=== PATIENT | female | born 1960 | race Caucasian/White ===

== ENCOUNTER 2017-06-01 20:33 | Observation (INO) ==
[2017-06-01] MEDS ORDERED: MORPHINE 2 MG/1 ML SYRINGE IV STA ×2 (20:52→22:32)
[2017-06-01] MEDS ORDERED: ONDANSETRON 4 MG/2 ML VIAL IV STA ×2 (20:52→22:32)
[2017-06-01 21:04] LABS: Basophils # 0.1 10*3/uL (0.0-0.2); Basophils % 0.5 % (0.0-0.8); Eosinophils # 0.1 10*3/uL (0.0-0.87); Eosinophils % 1.3 % (0.00-10.9); Hematocrit 37.5 VOL% (35.7-47.0); Hemoglobin 12.7 GM/DL (12.0-16.0); Immature Granulocytes % 0.4 %; Immature Granulocytes Absolute 0.04 #; Lymphocytes # 2.5 10*3/uL (1.4-4.0); Lymphocytes % 27.1 % (21.3-54.2); Mean Corpuscular HGB Conc 33.9 GM/DL (32-36); Mean Corpuscular Hemoglobin 29 PG (27-34); Mean Corpuscular Volume 86.2 FL (87-102); Mean Platelet Volume 9.2 FL (9.6-12.0); Monocytes # 0.9 10*3/uL (0.11-0.8); Monocytes % 10.2 % (1.7-12.7); Neutrophils # 5.5 10*3/uL (1.4-7.4); Neutrophils % 60.5 % (38.7-73.9); Platelet Count 276 T/CUMM (130-400); Red Blood Count 4.35 MC/CUMM (3.8-5.5); Red Cell Distribution Width 12.6 % (9.3-17.3); White Blood Count 9.1 T/CUMM (4-12)
[2017-06-01] MEDS ORDERED: MORPHINE 2 MG/1 ML SYRINGE ONE ×2 (21:04→22:32)
[2017-06-01] MEDS ORDERED: ONDANSETRON 4 MG/2 ML VIAL ONE ×2 (21:04→22:32)
--- NOTE | 2017-06-01 21:06 | Emergency Department Note ---
ISofia Brittany, am scribing for, and in the presence of, Liberty Moon DO 21: 00. IRed Debra, DO, personally performed the services described in this documentation, ascribed by Nancy Black in my presence, and it is both accurate and complete . Arrival - Arrival Chief Complaint: Blood Pressure Stated Complaint: HTN Crisis ED Nursing Triage Note: C/C Hypertensive Crisis, feeling bad. Mode of Arrival: Stretcher Limitations: No Limitations Source: Patient, Family Time Seen by Provider: 06/01/17 20:47 - History of Present Illness HPI Narrative: This is a 56 y/o white female,who presents to the ED by EMS for further evaluation of a hypertension crisis. She states she has a known hx of HTN. She states around 1 month ago, she had her BP meds changed. She notes she sees a out of town. She notes a LIM and nausea. Pt states "I do not feel good." Pt has no other complaints/pain in the ED at this time. Pt has a PMHx of TIA, NIDDM , and HTN. PT has had a cholecystectomy and hysterectomy. Pt denies a family medical hx. Pt denies a social Hx. Onset (ago): hour(s) (Started earlier today) Consistency: constant Severity: moderate Allergies/Adverse Reactions: Allergies Allergy/AdvReac Type Severity Reaction Status Date / Time No Known Allergies Allergy Unverified 06/01/17 20:45 Home Medications: Home Medications Medication Instructions Recorded Confirmed Type Carvedilol [Coreg] 12.5 mg PO BID 06/01/17 06/01/17 History Chlorthalidone 25 mg PO DAILY 06/01/17 06/01/17 History Furosemide 20 mg PO DIRECTED 06/01/17 06/01/17 History Lovastatin 20 mg PO DAILY 06/01/17 06/01/17 History Potassium Citrate [Potassium 10 meq PO DAILY 06/01/17 06/01/17 History Citrate ER] Valsartan 320 mg PO DAILY 06/01/17 06/01/17 History metFORMIN [Glucophage] 500 mg PO TID W/MEALS 06/01/17 06/01/17 History Review of System - Review of System 12 point system: reviewed and no additional remarkable complaints except as stated - Review of System Review of Systems: Hypertension crisis Gastrointestinal: Present: nausea Neurological: Present: headache Medical,Surgical,& Family Hx - Medical History Cardio: History of: Hypertension Neurology: History of: TIA (x2) Endocrine: History of: Diabetes Mellitus (NIDDM) - Surgical History Abdominal Surgeries: Surgical HX of: Cholecystectomy Reproductive Surgeries: Surgical HX of;: Hysterectomy - Social History Smoking Status: Never smoker Frequency of Alcohol Use: None Type of Drug Use: None Exam Vital Signs: Vital Signs Temperature 97.3 F L 06/01/17 20:35 Pulse Rate 73 06/01/17 20:35 Respiratory Rate 18 06/01/17 20:35 Blood Pressure 198/103 06/01/17 20:35 O2 Sat by Pulse Oximetry 96 06/01/17 20:35 - General General appearance: alert, in no apparent distress - Head Head exam: Present: atraumatic, normocephalic, normal inspection - Eye Eye exam: Present: normal appearance, PERRL, EOMI. Absent: nystagmus - ENT ENT exam: Present: normal exam, mucous membranes moist - Neck Neck exam: Present: normal inspection, full ROM, trachea midline. Absent: tenderness - Chest Chest inspection: Present: normal inspection, symmetric chest wall rise. Absent : tenderness - Respiratory Respiratory exam: Present: normal lung sounds bilaterally. Absent: respiratory distress - Cardiovascular Cardiovascular exam: Present: regular rate, normal rhythm, normal heart sounds. Absent: murmur, rubs, gallop, clicks, JVD - Abdominal Exam Abdominal exam: Present: soft, normal bowel sounds. Absent: distention, tenderness, guarding, rebound, rigidity - Rectal Exam Rectal exam: Present: deferred - Extremities Exam Extremities exam: Present: normal inspection, full ROM, normal capillary refill. Absent: tenderness, pedal edema - Back Exam Back exam: Present: normal inspection, full ROM. Absent: tenderness, muscle spasm, rashes - Neurological Exam Neurological exam: Present: alert, oriented X3, CN II-XII intact. Absent: motor sensory deficit - Psychiatric Psychiatric exam: Present: normal affect, normal mood. Absent: depressed, agitated, anxious, flat affect, manic - Skin Skin exam: Present: warm, dry, intact, normal color. Absent: rash, cyanosis, diaphoresis Results - Labs CBC & BMP: 06/01/17 20:51 06/01/17 20:51 Lab Results: I have reviewed the patients labs Labs: Laboratory Tests 06/01/17 20:51 WBC 9.1 RBC 4.35 Hgb 12.7 Hct 37.5 MCV 86.2 L MCH 29 MCHC 33.9 RDW 12.6 Plt Count 276 MPV 9.2 L Neut % (Auto) 60.5 Lymph % (Auto) 27.1 [place] % (Auto) 10.2 Eos % (Auto) 1.3 Baso % (Auto) 0.5 Neut # (Auto) 5.5 Lymph # (Auto) 2.5 [place] # (Auto) 0.9 H Eos # (Auto) 0.1 Baso # (Auto) 0.1 Immature Gran % 0.4 Nucleated RBC % 0.0 Immature Gran # 0.04 Nucleated RBCs # 0.00 Immature Plt Fraction 0.0 Laboratory Tests 06/01/17 06/01/17 06/01/17 20:51 20:51 20:51 WBC 9.1 RBC 4.35 Hgb 12.7 Hct 37.5 MCV 86.2 L MCH 29 MCHC 33.9 RDW 12.6 Plt Count 276 MPV 9.2 L Neut % (Auto) 60.5 Lymph % (Auto) 27.1 [place] % (Auto) 10.2 Eos % (Auto) 1.3 Baso % (Auto) 0.5 Neut # (Auto) 5.5 Lymph # (Auto) 2.5 [place] # (Auto) 0.9 H Eos # (Auto) 0.1 Baso # (Auto) 0.1 Immature Gran % 0.4 Nucleated RBC % 0.0 Immature Gran # 0.04 Nucleated RBCs # 0.00 Immature Plt Fraction 0.0 Sodium 140 Potassium 4.0 Chloride 107 Carbon Dioxide 26 Anion Gap 11.0 BUN 18 Creatinine 0.80 GFR Calculation 86 BUN/Creatinine Ratio 22.00 H Glucose 148 H Calculated Osmolality 283.4 Calcium 9.3 Total Bilirubin < 0.39 AST 22 ALT 48 Alkaline Phosphatase 105 Total Creatine Kinase 66 CK-MB (CK-2) < 1.0 Troponin I < 0.015 B-Natriuretic Peptide 20 Total Protein 7.3 Albumin 3.6 Globulin 3.7 H Albumin/Globulin Ratio 0.9 L
[2017-06-01 21:26] LABS: Alanine Aminotransferase 48 U/L (13-56); Albumin 3.6 G/DL (3.4-5.0); Alkaline Phosphatase 105 U/L (45-117); Aspartate Amino Transferase 22 U/L (0-37); Bilirubin,Total < 0.39 MG/DL (0.2-1.0); Blood Urea Nitrogen 18 MG/DL (7-18); Calcium 9.3 MG/DL (8.5-10.1); Glucose 148 MG/DL (74-106); Osmolality,Calculated 283.4 MOS/KG (273-304); Sodium 140 MMOL/L (136-145); Total Protein 7.3 G/DL (6.4-8.3); Troponin I Only < 0.015 NG/ML (0.00-0.045)
[2017-06-01] MEDS ORDERED: PROMETHAZINE 25 MG/1 ML VIAL IM STA ×2 (21:26→21:47)
[2017-06-01] MEDS ORDERED: PROMETHAZINE 25 MG/1 ML VIAL ONE ×2 (21:26→21:48)
[2017-06-01] MEDS ORDERED: hydrALAZINE 20 MG/1 ML VIAL ONE (21:26)
[2017-06-01] MEDS ORDERED: hydrALAZINE 20 MG/1 ML VIAL IV STA (21:26)
--- NOTE | 2017-06-01 23:58 | Hospitalist History & Physical ---
Assessment and Plan (1) Hypertensive crisis Status: Acute Current Visit: Yes (2) Headache Status: Acute Current Visit: Yes (3) Diabetes Status: Acute Assessment and plan: We will admit the patient our service. We will start her on her home medications and have as needed IV hydralazine as needed. Her headache is not as bad as it was when her blood pressure was elevated. I feel comfortable that the headache is associated with the blood pressure. She has had no history of migraines Current Visit: Yes History of Present Illness Chief complaint: Hypertension and headache History of present illness: Ms. Cruz is a 56 year old female with past medical history of hypertension diabetes who was in her normal state of health until tonight at [employer]. Apparently patient started feeling bad. She has a history of bad blood pressure problems. Her doctor has recently adjusted some of her medications. She said her blood pressure to was so high tonight it would not register the knee she got a reading of 250/115. She felt weak developed a headache. Some [employer] friends checked on her in called ambulance. She was brought up to our hospital for further evaluation. I was consulted to admit her through the emergency room.- Home Medications Medication Instructions Recorded Confirmed Type Carvedilol [Coreg] 12.5 mg PO BID 06/01/17 06/01/17 History Chlorthalidone 25 mg PO DAILY 06/01/17 06/01/17 History Furosemide 20 mg PO DIRECTED 06/01/17 06/01/17 History Lovastatin 20 mg PO DAILY 06/01/17 06/01/17 History Potassium Citrate [Potassium 10 meq PO DAILY 06/01/17 06/01/17 History Citrate ER] Valsartan 320 mg PO DAILY 06/01/17 06/01/17 History metFORMIN [Glucophage] 500 mg PO TID W/MEALS 06/01/17 06/01/17 History Allergies Allergy/AdvReac Type Severity Reaction Status Date / Time No Known Allergies Allergy Unverified 06/01/17 20:45 Medical,Surgical,& Family Hx - Medical History Cardio: History of: Hypertension Neurology: History of: TIA (x2) Endocrine: History of: Diabetes Mellitus (NIDDM) - Surgical History Abdominal Surgeries: Surgical HX of: Cholecystectomy Reproductive Surgeries: Surgical HX of;: Hysterectomy - Family History Family History: Reports;: Family Diabetes, Family Hypertension - Social History Smoking Status: Never smoker Frequency of Alcohol Use: None Type of Drug Use: None 12 point system: reviewed and no additional remarkable complaints except as stated Exam - Constitutional Vitals: Period Temp Pulse Resp BP Sys/Sims Pulse Ox Last 24 Hr 97.3 F-97.3 F 73-73 18-18 198-198/103-103 96 - General General appearance: alert, in no apparent distress - Head Head exam: Present: atraumatic, normocephalic, normal inspection - Eye Eye exam: Present: normal appearance, PERRL, EOMI. - ENT ENT exam: Present: normal exam, mucous membranes moist - Neck Neck exam: Present: normal inspection, full ROM, trachea midline. - Chest Chest inspection: Present: normal inspection, symmetric chest wall rise. - Respiratory Respiratory exam: Present: normal lung sounds bilaterally. - Cardiovascular Cardiovascular exam: Present: regular rate, normal rhythm, normal heart sounds. . - Abdominal Exam Abdominal exam: Present: soft, normal bowel sounds. - Extremities Exam Extremities exam: Present: normal inspection, full ROM, normal capillary refill. - Back Exam Back exam: Present: normal inspection, full ROM. Absent: tenderness, muscle spasm, rashes - Neurological Exam Neurological exam: Present: alert, oriented X3, CN II-XII intact. Absent: motor sensory deficit - Psychiatric Psychiatric exam: Present: normal affect, normal mood - Skin Skin exam: Present: warm, dry, intact, normal color. Results - Labs CBC & BMP: 06/01/17 20:51 06/01/17 20:51
[2017-06-02] MEDS ORDERED: ZALEPLON 5 MG CAPSULE PO PRN (00:01)
[2017-06-02] MEDS ORDERED: MORPHINE 2 MG/1 ML SYRINGE IV PRN (00:01)
[2017-06-02] MEDS ORDERED: GLUCAGON 1 MG VIAL IM PRN (00:01)
[2017-06-02] MEDS ORDERED: PROMETHAZINE 25 MG/1 ML VIAL IM PRN (00:01)
[2017-06-02] MEDS ORDERED: DEXTROSE 50% 25 GM/50 ML SYRINGE IV PRN (00:01)
[2017-06-02] MEDS ORDERED: KETOROLAC 30 MG/1 ML VIAL IV PRN (00:05)
[2017-06-02] MEDS ORDERED: hydrALAZINE 20 MG/1 ML VIAL IV PRN (00:05)
[2017-06-02 06:18] LABS: Basophils % 0.2 % (0.0-0.8); Hemoglobin 13.1 GM/DL (12.0-16.0); Immature Granulocytes % 0.5 %; Immature Granulocytes Absolute 0.06 #; Lymphocytes % 8.3 % (21.3-54.2); Mean Corpuscular HGB Conc 33.6 GM/DL (32-36); Mean Corpuscular Hemoglobin 29 PG (27-34); Mean Corpuscular Volume 87.4 FL (87-102); Mean Platelet Volume 9.5 FL (9.6-12.0); Monocytes # 0.7 10*3/uL (0.11-0.8); Monocytes % 5.5 % (1.7-12.7); Neutrophils # 10.3 10*3/uL (1.4-7.4); Neutrophils % 85.5 % (38.7-73.9); Platelet Count 295 T/CUMM (130-400); Red Blood Count 4.46 MC/CUMM (3.8-5.5); Red Cell Distribution Width 12.8 % (9.3-17.3); White Blood Count 12.1 T/CUMM (4-12)
--- NOTE | 2017-06-02 06:32 | CT Report ---
CT brain Indication: Headache, transient ischemic attack Comparison: None available Technique: Axial CT imaging of the brain is performed without contrast with 3 mm increments. Findings: No evidence of hemorrhage, mass mass effect midline shift or acute infarct seen. The brain parenchyma attenuation and differentiation appears within normal limits. The ventricles and cisterns are normal in caliber. No cranial or skull base abnormality is identified. Impression: No evidence of abnormality demonstrated. This CT exam was performed using one or more the following dose reduction techniques: Automated exposure control, adjustment of the MA and/or KV according to patient size, or use of iterative reconstruction technique. PROCEDURE INTERPRETED AT [facility] DEPARTMENT OF RADIOLOGY Final Report Signed by: Dr. Carmelo Peralta
[2017-06-02 07:02] LABS: Albumin 3.4 G/DL (3.4-5.0); Bilirubin,Total 1.9 MG/DL (0.2-1.0); Osmolality,Calculated 279.5 MOS/KG (273-304); Potassium 4.3 MMOL/L (3.5-5.1); Total Protein 7.4 G/DL (6.4-8.3)
[2017-06-02] MEDS: INSULIN REGULAR 100 UNIT/ML SUBCUT SCH ×4 (07:37→22:04)
[2017-06-02] MEDS: LOVASTATIN 20 MG TABLET PO SCH (08:49)
[2017-06-02] MEDS: CARVEDILOL 12.5 MG TABLET PO SCH ×2 (08:49→16:15)
[2017-06-02] MEDS: CHLORTHALIDONE 25 MG TABLET PO SCH (08:49)
[2017-06-02] MEDS: POTASSIUM CITRATE 10 MEQ TABLET PO SCH (08:49)
[2017-06-02] MEDS: VALSARTAN 160 MG TABLET PO SCH (08:49)
[2017-06-02] MEDS: PANTOPRAZOLE 40 MG TABLET PO SCH (08:49)
[2017-06-02] MEDS ORDERED: FUROSEMIDE 20 MG TABLET PO SCH (09:00)
[2017-06-02] MEDS: ONDANSETRON 4 MG/2 ML VIAL IV PRN ×2 (09:00→20:44)
[2017-06-02] MEDS: ENOXAPARIN 40 MG/0.4 ML SYRINGE SUBCUT SCH (09:00)
--- NOTE | 2017-06-02 10:27 | EKG Report ---
Stationary ECG Study [facility] ER Test Date: 06/01/2017 8:39:44 PM Pat Name: BREANNA CARLSON Department: Room: 535 Gender: F Air Conditioning Service Technician: : 1960 Requested by: Liberty Moon Order Number: [id number] Reading MD: COLT NASCIMENTO Intervals [place] Rate: 73 P: 73 CT: 197 QRS: 52 QRSD: 81 T: 60 QT: 401 QTc: 427 Interpretive Statements SINUS RHYTHM Electronically Signed On 06-02-17 10:36:30 CDT by COLT NASCIMENTO [email or web address]
[2017-06-02] MEDS: ACETAMINOPHEN 325 MG TABLET PO PRN ×2 (13:52→20:43)
[2017-06-02] MEDS: FUROSEMIDE 40 MG TABLET PO SCH (15:00)
--- NOTE | 2017-06-02 16:45 | Hospitalist Progress Note ---
Hospitalist: Subjective Interval history: Patient was admitted with hypertensive crisis. Blood pressure and headache are better today. Exam - Constitutional Vitals: Period Temp Pulse Resp BP Sys/Sims Pulse Ox Last 24 Hr 95.7 F-98.4 F 73-95 15-20 130-198/60-103 90-97 Exam: General: No Acute Distress HEENT: Normocephalic, atraumatic, Extra ocular movements intact Neck: Supple, No JVD Chest: Clear to auscultation B/L CV: S1 + S2 audible without murmur, gallop or rub Abd: soft, NT, Non-distended, BS + Ext: No edema Skin: No purpura, bruising or rash Rheumatologic: No Joint deformities Neurologic: Strength 5/5 all extremities, no gross sensory deficits Results - Labs CBC & BMP: 06/02/17 05:01 06/02/17 05:01 - Impressions Assessment and Plan: (1) Hypertensive crisis Status: Acute Current Visit: Yes She sees a hypertension doctor in [place]. She also has obstructive sleep apnea and thus contributing to her hypertension problem. Blood pressure is better than yesterday but still elevated. She has been started on home medications and will add Lasix and Tenex, continue to monitor blood pressure. Her is going to bring her CPAP machine for use at night. (2) Headache Status: Acute Current Visit: Yes Headache is better today (3) Diabetes Status: Acute Assessment and plan: Controlled Current Visit: Yes Quality Measures - Stroke Symptom Onset Unknown: No
[2017-06-03] MEDS: INSULIN REGULAR 100 UNIT/ML SUBCUT SCH ×2 (09:03→12:20)
[2017-06-03] MEDS: CARVEDILOL 12.5 MG TABLET PO SCH (09:05)
[2017-06-03] MEDS: PANTOPRAZOLE 40 MG TABLET PO SCH (09:05)
[2017-06-03] MEDS: VALSARTAN 160 MG TABLET PO SCH (09:05)
[2017-06-03] MEDS: LOVASTATIN 20 MG TABLET PO SCH (09:05)
[2017-06-03] MEDS: FUROSEMIDE 40 MG TABLET PO SCH (09:05)
[2017-06-03] MEDS: POTASSIUM CITRATE 10 MEQ TABLET PO SCH (09:05)
[2017-06-03] MEDS: ACETAMINOPHEN 325 MG TABLET PO PRN (09:05)
[2017-06-03] MEDS: CHLORTHALIDONE 25 MG TABLET PO SCH (09:06)
[2017-06-03] MEDS: ENOXAPARIN 40 MG/0.4 ML SYRINGE SUBCUT SCH (09:06)
[2017-06-03 10:53] VITALS: BP 98/55
--- NOTE | 2017-06-03 12:33 | Discharge Summary ---
Hospital Course - Hospital Course Hospital Course: 56 year old female with past medical history of hypertension diabetes syndrome with hypertensive crisis and hypertensive urgency with a blood pressure of 250/ 115. She was at the [employer] that time. She felt weak and developed a headache. Some [employer] friends checked on her and called ambulance. She was brought up to our hospital for further evaluation. He was admitted to the hospital service. Patient reported compliance with her blood pressure medications. She stated that she sees a hypertension specialist [place]. She is on several blood pressure medications which were continued. Will give an extra dose of Lasix and also give her 1 mg on Tenex at night. Her systolic blood pressures around 98 today. Therefore we are not going to continue Tenex. She reported a lot of stress with I believe is contributing to her blood pressure issues. He is transferred in fluid and then also makes her blood pressure go up , she does take Lasix as needed for that. I feel her current home regimen for blood pressure is adequate. And if he manages her salt intake and stress level she should do do fine on her current home regimen. She will inform the floor of this hospital admission and get a more appointment to see to see him for any further adjustments of blood pressure medicine. She is otherwise feeling better and has reached maximal hospital benefit and being discharged home in an improved and stable condition. - Time spent with patient Time with patient DS: Less than 30 minutes Diagnosis - Discharge Diagnosis (1) Hypertensive crisis Status: Resolved Discharge Plan - Discharge Data Condition at Discharge: Stable Discharge Diet: low salt diet Activity: resume usual activities as tolerated Hygiene: no restrictions Weight Bearing at Discharge: full weight bearing Driving: no restrictions - Discharge Medications Continue RX: Carvedilol [Coreg] 12.5 mg PO BID RX: Valsartan 320 mg PO DAILY RX: Potassium Citrate [Potassium Citrate ER] 10 meq PO DAILY RX: Lovastatin 20 mg PO DAILY RX: Ergocalciferol (Vitamin D2) [Vitamin D2] 1 each PO DIRECTED RX: metFORMIN [Glucophage] 500 mg PO TID W/MEALS RX: Furosemide 20 mg PO DIRECTED - Follow Up or Referral Follow Up: No PCP,. [Primary Care Provider] - 1 Week - Forms/Instructions Exam - Constitutional Vitals: Period Temp Pulse Resp BP Sys/Sims Pulse Ox Last 24 Hr 97.3 F-98.3 F 72-88 18-20 98-130/55-76 90-94 Exam: General: No Acute DistressNo Acute DistressNormocephalic, atraumatic, Extra ocular movements intactSupple, No JVDClear to auscultation B/LS1 + S2 audible without murmur, gallop or rubsoft, NT, Non-distended, BS + HEENT: Normocephalic, atraumatic, Extra ocular movements intact Neck: Supple, No JVD Chest: Clear to auscultation B/L CV: S1 + S2 audible without murmur, gallop or rub Abd: soft, NT, Non-distended, BS + Ext: No edema Skin: No purpura, bruising or rash Rheumatologic: No Joint deformities Neurologic: Strength 5/5 all extremities, no gross sensory deficits Discharge Results Labs on day of discharge: Labs from last 24 hours 06/03/17 06/03/17 06/02/17 10:18 06:56 21:17 POC Glucose 168 H 137 H 207 H 06/02/17 15:58 POC Glucose 154 H DS: Provider Date of admission: 06/02/17 00:01 Primary care physician: . No PCP Attending physician on admission: Sameer Arce MD Discharging clinician: Tarsha Chandler MD
== END 2017-06-03 13:27 | disposition home or self-care (01) ==
LOC: EDUNIT# → EDBD → N.ED 20:33 → N.EDINP 20:33 → SUATTDRO 06-02 00:01 → N.5E 06-02 00:24
PROVIDERS: ADMIT Internal Medicine; ATTEND Internal Medicine Infectious Disease